=== PATIENT | male | born 1995 | race Two or more races ===

== ENCOUNTER 2021-07-25 21:01 | Emergency (ER) | payer MEDICAID ==
[~2021-07-25] VITALS: Ht 162.6 cm; Wt 65.8 kg
[2021-07-25 21:02] VITALS: BP 126/81
== END 2021-07-25 23:50 | disposition home or self-care (01) ==
LOC: ER 21:01
DX: T78.40XA Allergy, unspecified, initial encounter (principal); F41.9 Anxiety disorder, unspecified; F32.9 Major depressive disorder, single episode, unspecified; F19.10 Other psychoactive substance abuse, uncomplicated; X58.XXXA Exposure to other specified factors, initial encounter